=== PATIENT | male | born 1975 | race Caucasian/White ===

== ENCOUNTER 2017-08-23 21:06 | Emergency (ER) | payer MEDICAID ==
--- NOTE | 2017-08-23 21:05 | EDPHY ---
H & P Constitutional: Initial Vital Signs Temperature (C) 36.9 C 08/23/17 21:10 Heart Rate 88 08/23/17 21:10 Respiratory Rate 18 08/23/17 21:10 Blood Pressure 143/88 H 08/23/17 21:10 O2 Sat (%) 96 08/23/17 21:10 O2 Delivery Mode Room Air Allergies/Adverse Reactions: No Known Allergies Allergy (Unverified 08/23/17 21:15) Home Medications: Medication Instructions Recorded NK [No Known Home Meds] 08/23/17 Medical Decision Making ED Course/Re-evaluation: CHIEF COMPLAINT: HISTORY OF PRESENT ILLNESS: The patient is a homeless 42 y/o male arriving via EMS complaining of a two day old bee sting that caused vomiting. He reports that two days ago the bee stung his arm and then he had to dry heave. He has no other associated symptoms. He denies bee allergy. REVIEW OF SYSTEMS: A 10 point review of systems was performed and is negative with the exception of the elements mentioned in the history of present illness. PHYSICAL EXAM: HR, BP, O2 Sat, RR. Temp noted General Appearance: Alert, well hydrated, appropriate, and non-toxic appearing. Head: Atraumatic without scalp tenderness or obvious injury Eyes: Pupils equal, round, reactive to light and accommodation, EOMI, no trauma , no injection. Ears: Clear bilaterally, no perforation, normal landmarks Nose: Atraumatic, no rhinorrhea, clear. Throat: There is no erythema or exudates, no lesions, normal tonsils, mucus membranes moist. Neck: Supple, nontender, no lymphadenopathy. Respiratory: No retractions, no distress, no wheezes, and no accessory muscle use. Lungs are clear to auscultation bilaterally. Cardiovascular: Regular rate and rhythm, no murmurs, rubs, or gallops. Good capillary refill all extremities. Gastrointestinal: Abdomen is soft, nontender, non-distended, no masses, no rebound, no guarding, no peritoneal signs. Musculoskeletal: Normal active ROM of all extremities, atraumatic. Neurological: Alert, appropriate, and interactive. The patient has normal DTRs and non-focal cranial nerves, motor, sensory, and cerebellar exam. Skin: No rashes, good turgor, no nodules on palpation. Past medical history: Denies Past surgical history: Denies Family history: Non-contributory Social history: Homeless, smoker, DIAGNOSTICS/PROCEDURES/CRITICAL CARE TIME: DIFFERENTIAL DIAGNOSIS: The differential diagnosis included but was not limited to angioedema, anaphylaxis, anaphylactoid reaction, urticarial reaction, and other infectious causes for skin rash. MEDICAL DECISION MAKING: The patient is a homeless 42 y/o male arriving via EMS in bad weather complaining of a two day old bee sting that caused nausea and vomiting. On exam I cannot locate any bee sting and the patient seems to be in good health. I believe he is likely looking for a place to stay tonight. Benadryl and Zofran ordered. - Data Points Medications Given: Discontinued Medications Diphenhydramine HCl (Benadryl) 25 mg PO EDNOW ONE Stop: 08/23/17 21:13 Last Admin: 08/23/17 21:18 Dose: 25 mg Ondansetron HCl (Zofran Odt) 4 mg PO EDNOW ONE Stop: 08/23/17 21:14 Last Admin: 08/23/17 21:18 Dose: 4 mg Departure - Departure Disposition: Home, Routine, Self-Care Clinical Impression: Malingering Bee sting Qualifiers: Encounter type: initial encounter Injury intent: accidental or unintentional Qualified Code(s): T63.441A - Toxic effect of venom of bees, accidental ( unintentional), initial encounter Condition: Good Instructions: Insect Bite or Sting (ED) Additional Instructions: 1. Follow up with your primary care provider for unimproved symptoms. 2. Return to the ED for difficulty breathing or other dramatic worsening of condition. Referrals: [facility],. [Clinic] - As per Instructions Report Scribed for: Jose Antonio Ryan Report Scribed by: Radha Lemons Date of Report: 08/23/17 Time of Report: 21:14
[2017-08-23] MEDS ORDERED: diphenhydrAMINE 25 MG CAP PO ONE (21:12)
[2017-08-23] MEDS ORDERED: ONDANSETRON DISINTEGRATING 4 MG TAB PO ONE (21:13)
[2017-08-23 21:15] VITALS: BP 143/88; PULSE 88; RESP 18; TEMP 98.4; O2SAT 96
== END 2017-08-23 21:29 | disposition home or self-care (01) ==
DX: T63.441A Toxic effect of venom of bees, accidental (unintentional), initial encounter (principal); F17.200 Nicotine dependence, unspecified, uncomplicated; Z76.5 Malingerer [conscious simulation]

== ENCOUNTER 2017-11-05 09:52 | Inpatient (IN) | payer MEDICAID ==
[2017-11-05] MEDS ORDERED: ONDANSETRON 4 MG/2 ML VIAL ONE (10:01)
[2017-11-05] MEDS ORDERED: NS 1,000 ML IV ONE ×2 (10:08→11:10)
[2017-11-05] MEDS ORDERED: ONDANSETRON 4 MG/2 ML VIAL IVP ONE (10:09)
[2017-11-05 10:48] LABS: % IMMATURE GRANULYOCYTES 0.5 % (0.0-1.1); ABSOLUTE IMMATURE GRANULOCYTES 0.11 10^3/uL (0.00-0.10); ADD DIFF? NO; ADD MORPH? NO; ADD SCAN? NO; ATYPICAL LYMPHOCYTE FLAG 0 (0-99); FRAGMENT RBC FLAG 0 (0-99); HEMATOCRIT 47.5 % (40.0-51.0); HEMOGLOBIN 17.1 g/dL (13.7-17.5); LEFT SHIFT FLG 10 (0-99); LIPEMIA HEMOLYSIS FLAG 90 (0-99); MEAN CELL HEMOGLOBIN 31.6 pg (27.9-34.1); MEAN CELL VOLUME 87.8 fL (81.5-99.8); MEAN PLATELET VOLUME 9.5 fL (8.7-11.7); PLATELET CLUMPS FLAG 0 (0-99); PLATELET COUNT 258 10^3/uL (150-400); RED BLOOD CELL COUNT 5.41 10^6/uL (4.40-6.38); RED CELL DISTRIBUTION WIDTH 13.6 % (11.5-15.2)
[2017-11-05 11:08] LABS: ANION GAP 32 mEq/L (8-16); CALCIUM 10.5 mg/dL (8.5-10.4); CARBON DIOXIDE 15 mEq/l (22-31); CHLORIDE 95 mEq/L (97-110); CREATININE 1.7 mg/dL (0.7-1.3); ETHANOL SERUM 12 mg/dL (0-10); GLOMERULAR FILTRATION RATE 45; GLUCOSE 139 mg/dL (70-100); POTASSIUM 5.1 mEq/L (3.5-5.2); SODIUM 142 mEq/L (134-144)
[2017-11-05] MEDS ORDERED: LORazepam 2 MG/ML INJ IVP ONE (11:10)
--- NOTE | 2017-11-05 11:12 | EDPHY ---
H & P Time Seen by Provider: 11/05/17 10:15 HPI/ROS: CHIEF COMPLAINT: Vomiting HISTORY OF PRESENT ILLNESS: 42-year-old male presents to the emergency department with multiple episodes of vomiting since this morning. The patient admits to drinking 2 beers yesterday. He has some mild diffuse abdominal pain. He has no diarrhea. No known ill contacts. Patient states "I feel awful ". He denies any other substance abuse. Patient states that since he has been out of work he has been drinking heavily. He has never had an alcohol withdrawal related seizure. No fevers or chills. No URI symptoms. No cough. REVIEW OF SYSTEMS: Constitutional: No fever, no chills. Eyes: No double or blurry vision. ENT: No sore throat. Respiratory: No cough, no shortness of breath. Cardiac: No chest pain. Gastrointestinal: Abdominal pain, vomiting. No diarrhea. Genitourinary: No dysuria. Musculoskeletal: No neck or back pain. Skin: No rashes. Neurological: No headache. Past Medical/Surgical History: Negative Social History: homeless Smoking Status: Current every day smoker Physical Exam: General Appearance: Alert, moderate distress. Extremely anxious. Eyes: Pupils equal and round. Extraocular motions are all intact. ENT: Mouth: Mucous membranes very dry. Respiratory: No wheezing, rhonchi, or rales, lungs are clear to auscultation. Cardiovascular: Regular rate and rhythm. Gastrointestinal: Abdomen is soft. He has tenderness with palpation in the right lower quadrant. There is no masses, rebound or guarding noted. No CVA tenderness bilaterally. Neurological: Alert and oriented x 3, cranial nerves II through XII grossly intact Skin: Warm and dry, no rashes. Musculoskeletal: Nontender to palpate along the cervical, thoracic or lumbar spine. Neck is supple. Extremities: Full range of motion and no peripheral edema. Psychiatric: Patient is oriented X 3, there is no agitation. Constitutional: Initial Vital Signs Temperature (C) 36.6 C 11/05/17 10:05 Heart Rate 125 H 11/05/17 10:05 Respiratory Rate 18 11/05/17 10:05 Blood Pressure 107/94 H 11/05/17 10:05 O2 Sat (%) 97 11/05/17 10:05 O2 Delivery Mode Room Air Allergies/Adverse Reactions: No Known Allergies Allergy (Unverified 08/23/17 21:15) Home Medications: Medication Instructions Recorded NK [No Known Home Meds] 08/23/17 Medical Decision Making - Diagnostics Imaging Results: Imaging Impressions Abdomen/Pelvis CT 11/05/17 11:21 Impression: 1. Mild cecal wall thickening, which could be related to underdistention or mild colitis. 2. Fatty liver. 3. Mild gallbladder distention with no gallbladder wall thickening or appreciable biliary dilatation. 4. Additional findings as above. Findings discussed with Na Powell PA-C, 11/05/2017 at 12:02. Attention: This CT examination is specifically designed to evaluate patients who are clinically suspected of having acute obstructive uropathy. This examination does not use radiographic contrast, and as such, provides only a limited evaluation of the abdomen, pelvis and retroperitoneum. If there is further clinical suspicion for pathological conditions other than obstructive uropathy, a complete CT evaluation of the abdomen and pelvis utilizing intravenous and oral contrast should be considered. Imaging: Discussed imaging studies w/ call center dispatcher Radiologist ED Course/Re-evaluation: 42-year-old male presents to the emergency department with fatigue and multiple episodes of vomiting. Laboratory studies reveal elevated white blood cell count of nearly 24,000. I was concerned about possible acute appendicitis given his abdominal pain and vomiting. Patient however has a creatinine of 1.7. He was not given IV contrast. CT noncontrast of the abdomen and pelvis reveal a normal appendix. No obstruction. The patient will be admitted with abdominal pain, dehydration, vomiting, and acute kidney injury. Case was discussed with Dr. Chayo Gilmore, secondary supervising physician, who did not directly evaluate the patient but agrees with treatment and plan. IV was established the patient received 2 L of IV normal saline as well as IV Ativan and Zofran. Differential Diagnosis: Including but not limited to dehydration, acute appendicitis, kidney stone, urinary tract infection, pyelonephritis, electrolyte abnormality - Data Points Laboratory Results: Laboratory Results 11/05/17 10:00 11/05/17 10:00 11/05/17 11/05/17 10:00 10:00 WBC 23.62 10^3/uL H 10^3/uL (3.80-9.50) RBC 5.41 10^6/uL 10^6/uL (4.40-6.38) Hgb 17.1 g/dL g/dL (13.7-17.5) Hct 47.5 % % (40.0-51.0) MCV 87.8 fL fL (81.5-99.8) MCH 31.6 pg pg (27.9-34.1) MCHC 36.0 g/dL g/dL (32.4-36.7) RDW 13.6 % % (11.5-15.2) Plt Count 258 10^3/uL 10^3/uL (150-400) MPV 9.5 fL fL (8.7-11.7) Neut % (Auto) 85.7 % H % (39.3-74.2) Lymph % (Auto) 8.9 % L % (15.0-45.0) [place] % (Auto) 4.4 % L % (4.5-13.0) Eos % (Auto) 0.0 % L % (0.6-7.6) Baso % (Auto) 0.5 % % (0.3-1.7) Nucleat RBC Rel Count 0.0 % % (0.0-0.2) Absolute Neuts (auto) 20.26 10^3/uL H 10^3/uL (1.70-6.50) Absolute Lymphs (auto) 2.11 10^3/uL 10^3/uL (1.00-3.00) Absolute Monos (auto) 1.03 10^3/uL H 10^3/uL (0.30-0.80) Absolute Eos (auto) 0.00 10^3/uL L 10^3/uL (0.03-0.40) Absolute Basos (auto) 0.11 10^3/uL H 10^3/uL (0.02-0.10) Absolute Nucleated RBC 0.00 10^3/uL 10^3/uL (0-0.01) Immature Gran % 0.5 % % (0.0-1.1) Immature Gran # 0.11 10^3/uL H 10^3/uL (0.00-0.10) Sodium 142 mEq/L mEq/L (134-144) Potassium 5.1 mEq/L mEq/L (3.5-5.2) Chloride 95 mEq/L L mEq/L (97-110) Carbon Dioxide 15 mEq/l L mEq/l (22-31) Anion Gap 32 mEq/L H mEq/L (8-16) BUN 16 mg/dL mg/dL (7-23) Creatinine 1.7 mg/dL H mg/dL (0.7-1.3) Estimated GFR 45 Glucose 139 mg/dL H mg/dL (70-100) Calcium 10.5 mg/dL H mg/dL (8.5-10.4) Ethyl Alcohol 12 mg/dL H mg/dL (0-10) Medications Given: Acetaminophen (Tylenol) 650 mg PO Q4HRS PRN PRN Reason: Pain, Mild/Fever, Can Take PO Stop: 05/04/18 12:17 Last Admin: 11/05/17 15:34 Dose: 650 mg Chlordiazepoxide HCl (Librium) 25 mg PO TID CRESCENCIO Stop: 05/04/18 15:59 Last Admin: 11/05/17 16:38 Dose: 25 mg Sodium Chloride (Ns) 1,000 mls @ 100 mls/hr IV CONT CRESCENCIO Stop: 05/04/18 12:29 Last Admin: 11/05/17 13:42 Dose: 1,000 mls Thiamine HCl 100 mg/ Sodium (Chloride) 101 mls @ 202 mls/hr IV DAILY CRESCENCIO Stop: 05/04/18 12:29 Last Admin: 11/05/17 13:42 Dose: 101 mls Discontinued Medications Sodium Chloride (Ns) 1,000 mls @ 0 mls/hr IV ONCE ONE PRN Reason: Wide Open Stop: 11/05/17 10:09 Last Admin: 11/05/17 10:09 Dose: 1,000 mls Sodium Chloride (Ns) 1,000 mls @ 0 mls/hr IV ONCE ONE PRN Reason: Wide Open Stop: 11/05/17 11:11 Last Admin: 11/05/17 11:19 Dose: 1,000 mls Lorazepam (Ativan Injection) 1 mg IVP EDNOW ONE Stop: 11/05/17 11:11 Last Admin: 11/05/17 11:20 Dose: 1 mg Ondansetron HCl (Zofran) 4 mg IVP EDNOW ONE Stop: 11/05/17 10:10 Last Admin: 11/05/17 10:09 Dose: 4 mg Departure - Departure Disposition: [facility] Clinical Impression: Dehydration, Acute kidney injury Abdominal pain Qualifiers: Abdominal location: lower abdomen, unspecified Qualified Code(s): R10.30 - Lower abdominal pain, unspecified Vomiting Qualifiers: Vomiting type: unspecified Vomiting Intractability: non-intractable Nausea presence: with nausea Qualified Code(s): R11.2 - Nausea with vomiting, unspecified Condition: Fair
[2017-11-05] MEDS ORDERED: ONDANSETRON 4 MG/2 ML VIAL IVP PRN (12:18)
[2017-11-05] MEDS: THIAMINE HCL 100 MG in NS 100 ML IV SCH (13:42)
[2017-11-05] MEDS: NS 1,000 ML IV SCH (13:42)
[2017-11-05] MEDS: ACETAMINOPHEN 325 MG TAB PO PRN (15:34)
--- NOTE | 2017-11-05 16:00 | GHP ---
[f rep st] HISTORY AND PHYSICAL DATE OF ADMISSION: 11/05/2017 CHIEF COMPLAINT: Vomiting. HISTORY OF PRESENT ILLNESS: A 42-year-old male with no significant past medical history, who present s with sudden onset of nausea and vomiting the evening prior to presentation. Patient reports overal l not feeling well with some subjective fevers and chills, nonbloody emesis with mild associated abdo farrah discomfort. Patient denies any diarrhea, denies any melena or blood in his stools. Denies any dysuria, hematuria, rashes, known sick contacts. The patient reports some shortness of breath when he was vomiting and feeling ill; otherwise, no reported cough. Denies any chest pain, headache or vi akhil changes. The patient has some low back pain reported with his retching. Overall, feels very fa tigued. PAST MEDICAL HISTORY: Alcohol use/abuse. SOCIAL HISTORY: The patient smokes a pack a day. Reports inconsistent alcohol use, says he keeps a job. Denies illicit drugs. Reports smoking marijuana daily. FAMILY HISTORY: Positive for colon cancer in his father. REVIEW OF SYSTEMS: A 10-point review of systems is negative with the exception of that reported in t he HPI. PHYSICAL EXAMINATION: VITAL SIGNS: Blood pressure is 150/113, heart rate 125, respiratory rate 18, saturating 98% on room air, 36.4. GENERAL: This is a disheveled male sitting up in bed. HEENT: No table for dry mucous membranes. Eye exam is negative for any icterus. CARDIAC: Patient is tachycar dic. PULMONARY: Clear to auscultation bilaterally. GASTROINTESTINAL: Positive bowel sounds. ABDO MEN: Soft. MUSCULOSKELETAL: Negative for any lower extremity edema. SKIN: Negative for any rashe s. NEUROLOGIC: The patient is tremulous with tongue fasciculations on my examination. Otherwise, a lert and oriented. PSYCHIATRIC: He appears anxious on interview and examination. DATA: CT of the abdomen and pelvis, which I personally reviewed and interpreted, shows mild cecal wa ll thickening, potentially consistent with mild colitis. Fatty liver. No gallbladder wall thickenin g. Laboratory: White count 23,000, hematocrit 47.5, platelets of 258. Sodium 142, creatinine 1.7, anio n gap 32, bicarb 15. ASSESSMENT AND PLAN: This is a 42-year-old male, presenting with nausea and vomiting. 1. Systemic inflammatory response syndrome: The patient has leukocytosis and tachycardia. No clear source is identified at this time. May be related to alcohol withdrawal alone, gastrointestinal or pulmonary source. Will send gastrointestinal pathogen panel, respiratory pathogen panel. 2. Acute alcohol withdrawal. Patient is tremulous, tachycardic on examination with a low blood alco hol at presentation. Will initiate the Clinical [facility] Withdrawal Assessment protocol. 3. Sinus tachycardia. Suspect likely multifactorial: Hypovolemia, potentially acute infection, alc ohol withdrawal. We will fluid resuscitate, treat alcohol withdrawal, work up potential occult infec tion, and follow. 4. Acute leukocytosis. The source is unclear to me currently. The patient's only significant prese nting complaint was nausea. Will send gastrointestinal and respiratory pathogen panels, order a ches t x-ray to rule out intrapulmonic source. Can recheck and follow. Will not begin empiric antibiotic s at this time. I have additionally ordered urinalysis and culture. Unfortunately, the patient is n ot an excellent historian. 5. Anion gap metabolic acidosis. Suspect secondary to starvation ketosis, lower suspicion for lacti c acidosis but will add a lactate to the presenting labs. Will follow patient's acid-base status aft er aggressive fluid resuscitation. 6. Acute kidney injury. Suspect hypovolemic in nature from nausea and vomiting, and poor p.o. intak e at presentation. Again, will recheck after fluid resuscitation. 7. Prophylaxis with heparin secondary to acute kidney injury. DIET: Regular, if he can tolerate it. DISPOSITION: Expecting greater than 2 midnights as patient is presenting acutely ill from an unident ified source and will need treatment for alcohol withdrawal. I discussed the case with the emergency room physician. Patient will be triaged to the medical-surgical floor for care. /[id number]/MODL
[2017-11-05 16:10] LABS: HEMATOCRIT 37.8 % (40.0-51.0); HEMOGLOBIN 13.7 g/dL (13.7-17.5); MEAN CELL HEMOGLOBIN 31.7 pg (27.9-34.1); MEAN CELL HEMOGLOBIN CONCENTR. 36.2 g/dL (32.4-36.7); MEAN CELL VOLUME 87.5 fL (81.5-99.8); RED BLOOD CELL COUNT 4.32 10^6/uL (4.40-6.38); RED CELL DISTRIBUTION WIDTH 13.5 % (11.5-15.2)
[2017-11-05 16:20] LABS: CALCIUM 8.7 mg/dL (8.5-10.4); CARBON DIOXIDE 22 mEq/l (22-31); CHLORIDE 101 mEq/L (97-110); CREATININE 1.2 mg/dL (0.7-1.3); GLOMERULAR FILTRATION RATE > 60; GLUCOSE 139 mg/dL (70-100); SODIUM 137 mEq/L (134-144)
[2017-11-05] MEDS: chlordiazePOXIDE 25 MG CAP PO SCH ×2 (16:38→20:46)
[2017-11-05 16:41] LABS: ANION GAP 14 mEq/L (8-16); POTASSIUM 4.9 mEq/L (3.5-5.2)
[2017-11-05 17:18] LABS: COLOR YELLOW; LEUKOCYTE ESTERASE,URINE NEGATIVE (NEGATIVE); NITRITE,URINE NEGATIVE (NEGATIVE)
[2017-11-05 17:43] LABS: PHENCYCLIDINE URINE BCH < 6 ng/ml (NEGATIVE); PHENCYCLIDINE URINE BCH NEGATIVE (NEGATIVE)
--- NOTE | 2017-11-05 17:49 | PDMN ---
Medical Necessity Medical necessity: C/M review: Patient meets INPT criteria under [facility] [id number] Substance related disorders; Acute alcohol withdrawal, systemic inflammatory response syndrome, acute leujkocytosis, WBC 23.62 sinus tachycardia, heart rate 125-107, anion gap metabolic acidosis, anion gap 32, bicarb 15, nausea, vomiting , requiring ongoing IV fluids, IV Thiamine daily, CIWA protocol, comorbid alcohol use / abuse, tobacco use, marijuana smoking daily. MD anticipates > 2 MN LOS for ongoing med nec for eval and TX of above.
[2017-11-05 17:56] LABS: TETRAHYDROCANNABINOL URINE 334 ng/mL (NEGATIVE)
--- NOTE | 2017-11-05 18:03 | ASMTCMCOM ---
CM Note CM Note Notes: Patient presented to the ED via EMS for malaise, vomiting. Patient admitted for Acute leukocytosis, Systemic Inflammatory Response Syndrome, CRISTIAN, ETOH Withdrawal. Patient is homeless and has been in the [facility] for about 3 months. CM may need to confirm patient has homeless resource information including [employer], etc. Exact DC needs unknown at this time. CM to follow. Date Signed: 11/05/2017 06:03 PM Electronically Signed By:Nadege Dave RN
[2017-11-05] MEDS: LORazepam 2 MG/ML INJ IVP PRN (18:48)
[2017-11-05] MEDS: HEPARIN 5,000 UNIT/0.5 ML SYR SC SCH (20:46)
[2017-11-05] MEDS: ONDANSETRON DISINTEGRATING 4 MG TAB PO PRN (20:50)
[2017-11-06] MEDS: NS 1,000 ML IV SCH (02:12)
[2017-11-06] MEDS: HEPARIN 5,000 UNIT/0.5 ML SYR SC SCH ×3 (04:42→20:43)
[2017-11-06 05:49] LABS: % IMMATURE GRANULYOCYTES 0.2 % (0.0-1.1); ABSOLUTE IMMATURE GRANULOCYTES 0.02 10^3/uL (0.00-0.10); ADD DIFF? NO; ADD MORPH? NO; ADD SCAN? NO; ATYPICAL LYMPHOCYTE FLAG 0 (0-99); FRAGMENT RBC FLAG 0 (0-99); HEMATOCRIT 39.1 % (40.0-51.0); HEMOGLOBIN 13.9 g/dL (13.7-17.5); LEFT SHIFT FLG 0 (0-99); LIPEMIA HEMOLYSIS FLAG 90 (0-99); MEAN CELL HEMOGLOBIN 32.1 pg (27.9-34.1); MEAN CELL HEMOGLOBIN CONCENTR. 35.5 g/dL (32.4-36.7); MEAN CELL VOLUME 90.3 fL (81.5-99.8); MEAN PLATELET VOLUME 9.7 fL (8.7-11.7); PLATELET CLUMPS FLAG 10 (0-99); PLATELET COUNT 165 10^3/uL (150-400); RED BLOOD CELL COUNT 4.33 10^6/uL (4.40-6.38); RED CELL DISTRIBUTION WIDTH 13.6 % (11.5-15.2)
[2017-11-06 06:20] LABS: ANION GAP 10 mEq/L (8-16); CALCIUM 8.1 mg/dL (8.5-10.4); CARBON DIOXIDE 22 mEq/l (22-31); CHLORIDE 107 mEq/L (97-110); GLOMERULAR FILTRATION RATE > 60; GLUCOSE 76 mg/dL (70-100); SODIUM 139 mEq/L (134-144)
[2017-11-06] MEDS ORDERED: ENOXAPARIN 40 MG/0.4 ML SYR SC SCH (09:00)
[2017-11-06] MEDS: THIAMINE HCL 100 MG in NS 100 ML IV SCH (09:31)
[2017-11-06] MEDS: chlordiazePOXIDE 25 MG CAP PO SCH ×3 (09:31→20:43)
--- NOTE | 2017-11-06 09:40 | HOSPPROG ---
Hospitalist Progress Note Assessment/Plan: #Etoh withdrawal: Librium, PRN Ativan. CM to evaluate #CRISTIAN: resolved with IVFs #Etoh abuse: counseled on cessation #Leukocytosis: likely dehydration. Resolved #Anion gap acidosis: resolved #SIRS: resolved #Sinus tachycardia: resolved with IVF #Diet: regular #Disp: cont inpatient admission for benzos, neuro checks Subjective: feeling anxious. Nauseated Objective: Vital Signs Temp Pulse Resp BP Pulse Ox 36.5 C 87 16 123/75 H 93 11/06/17 07:21 11/06/17 07:21 11/06/17 07:21 11/06/17 07:21 11/06/17 07:21 Microbiology 11/06/17 07:45 Gastrointestinal Tract Panel (PCR) - Final Stool No Organism Detected 11/05/17 16:54 Respiratory Panel (PCR) - Final Nasal, Sinus - Swab No Organism Detected Laboratory Results 11/06/17 04:37 11/06/17 04:37 11/05/17 11/06/17 11/07/17 05:59 05:59 05:59 Intake Total 3007 Output Total 200 Balance 2807 - Physical Exam Constitutional: no apparent distress Eyes: PERRL Ears, Nose, Mouth, Throat: dry mucous membranes Cardiovascular: regular rate and rhythym, no murmur, rub, or gallop Respiratory: no respiratory distress, no rales or rhonchi Gastrointestinal: normoactive bowel sounds, soft, non-tender abdomen Genitourinary: no bladder fullness Skin: warm Musculoskeletal: full muscle strength Neurologic: AAOx3, CN II-XII Intact, other (hand tremors and tongue fasiculations) Psychiatric: interacting appropriately, anxious ICD10 Worksheet Patient Problems: Problems Problem Status Onset Abdominal pain Acute Acute kidney injury Acute Dehydration Acute Vomiting Acute
[2017-11-06] MEDS: LORazepam 2 MG/ML INJ IVP PRN ×2 (09:43→14:25)
[2017-11-06] MEDS: ONDANSETRON DISINTEGRATING 4 MG TAB PO PRN ×2 (09:44→14:24)
[2017-11-06 10:58] LABS: ALBUMIN 3.1 g/dL (3.5-5.0); BILIRUBIN,TOTAL 1.1 mg/dL (0.1-1.4); BILIRUBIN-CONJUGATED 0.4 mg/dL (0.0-0.5); BILIRUBIN-UNCONJUGATED 0.7 mg/dL (0.0-1.1); TOTAL PROTEIN 5.4 g/dL (6.3-8.2)
--- NOTE | 2017-11-06 13:00 | ASMTCMCOM ---
CM Note CM Note Notes: Spoke with pt re; etoh resources. Pt is from [place], is very close with his mother who still lives there but due to his drinking cannot stay with her and he doesn't want to put her in that position. He has been living in a tent [address] but states cannot stay there anymore. Pt was working at the [employer] in [employer] but got fired. Wants to work again and does seem capable. CM discussed with pt the fact that when he doesn't drink he does well, so has awareness of needing to stay sober and be around supportive people that don't drink. Etoh resources given. DC Plan: Bed at [facility], bus pass, and warm clothes Date Signed: 11/06/2017 01:00 PM Electronically Signed By:Barb Steele RN
[2017-11-06] MEDS ORDERED: FLU VACC QS 2017-18 (3YR+)/PF 0.5 ML SYR (FLUARIX QUAD) IM ONE (17:42)
[2017-11-06] MEDS ORDERED: PNEUMOCOCCAL 0.5ML VACCINE VIAL IM ONE (17:42)
[2017-11-06] MEDS: ACETAMINOPHEN 325 MG TAB PO PRN (20:49)
[2017-11-07] MEDS: HEPARIN 5,000 UNIT/0.5 ML SYR SC SCH ×3 (04:54→21:10)
[2017-11-07] MEDS: LORazepam 2 MG/ML INJ IVP PRN (05:01)
--- NOTE | 2017-11-07 08:32 | HOSPPROG ---
Hospitalist Progress Note Assessment/Plan: #Etoh withdrawal: Still requiring Ativan #CRISTIAN: resolved with IVFs #Etoh abuse: counseled on cessation #Leukocytosis: likely dehydration. Resolved #Anion gap acidosis: resolved #SIRS: resolved #Sinus tachycardia: resolved with IVF #Diet: regular #Disp: cont inpatient admission for benzos, neuro checks. DC to snf at DC, likely tomorrow Subjective: dizzy and diarrhea today. Objective: Vital Signs Temp Pulse Resp BP Pulse Ox 36.8 C 68 14 110/64 95 11/07/17 07:19 11/07/17 07:19 11/07/17 07:19 11/07/17 07:19 11/07/17 07:19 Microbiology 11/06/17 07:45 Gastrointestinal Tract Panel (PCR) - Final Stool No Organism Detected Laboratory Results 11/06/17 04:37 11/06/17 04:37 11/06/17 11/07/17 11/08/17 05:59 05:59 05:59 Intake Total 3007 1700 Output Total 200 450 Balance 2807 1250 - Physical Exam Constitutional: no apparent distress Eyes: PERRL Ears, Nose, Mouth, Throat: moist mucous membranes, hearing normal Cardiovascular: regular rate and rhythym Respiratory: no respiratory distress, no rales or rhonchi Gastrointestinal: normoactive bowel sounds, other (mild epigastric TTP) Genitourinary: no bladder fullness Skin: warm Musculoskeletal: full muscle strength Neurologic: AAOx3, CN II-XII Intact, other (hand tremors, mild tongue fasiculation) Psychiatric: interacting appropriately ICD10 Worksheet Patient Problems: Problems Problem Status Onset Abdominal pain Acute Acute kidney injury Acute Dehydration Acute Vomiting Acute
[2017-11-07] MEDS: THIAMINE HCL 100 MG in NS 100 ML IV SCH (08:53)
[2017-11-07] MEDS: chlordiazePOXIDE 25 MG CAP PO SCH ×3 (08:53→21:09)
[2017-11-07] MEDS: NS 1,000 ML IV SCH (15:17)
[2017-11-08] MEDS: NS 1,000 ML IV SCH (03:33)
[2017-11-08 05:40] LABS: MAGNESIUM 1.8 mg/dL (1.6-2.3)
[2017-11-08] MEDS: HEPARIN 5,000 UNIT/0.5 ML SYR SC SCH (05:45)
[2017-11-08 07:24] VITALS: BP 130/75; PULSE 62; RESP 14; TEMP 98.1; O2SAT 96
[2017-11-08] MEDS: THIAMINE HCL 100 MG in NS 100 ML IV SCH (08:52)
[2017-11-08] MEDS: chlordiazePOXIDE 25 MG CAP PO SCH (08:52)
--- NOTE | 2017-11-08 10:30 | GDS ---
[f rep st] DISCHARGE SUMMARY DISCHARGE DIAGNOSES: 1. Alcohol withdrawal. 2. Alcohol dependence. 3. Acute kidney injury. 4. Metabolic anion gap acidosis. 5. Tachycardia. 6. Systemic inflammatory response syndrome. HISTORY OF PRESENT ILLNESS: A 42-year-old male with no significant past medical history, except for alcohol dependence, presented with sudden onset of nausea/vomiting evening prior to presentation. Re ports overall not feeling well, with some subjective fevers, chills, nonbloody emesis, and mild abdom inal discomfort. No diarrhea, melena, or hematochezia. No dysuria. HOSPITAL COURSE BY PROBLEM: 1. SIRS: Had mild leukocytosis and tachycardia at admission. This was likely secondary to alcohol withdrawal and dehydration. He remained afebrile, without an infectious source. CT abdomen, x-ray w ere negative, as well as a UA. 2. Tachycardia: Secondary to dehydration and alcohol withdrawal, since resolved with fluids. 3. Acute alcohol withdrawal: No history of seizures. He was treated with Librium and p.r.n. Ativan , and this has since resolved. I had multiple conversations, as well as Case Management, on cessatio n and he was provided resources. 4. Homelessness: Again, Case Management assisted with alf placement tonight and he was provided other alf options. 5. Metabolic anion gap acidosis secondary to starvation and alcohol ketoacidosis: Resolved with IV fluids. 6. CRISTIAN: Creatinine was elevated to 1.7. Quickly resolved with fluids. DISPOSITION: Patient is stable for discharge. MEDICATIONS: No new medications. FOLLOWUP: Patient should enroll in an alcohol cessation program. PHYSICAL EXAMINATION: VITAL SIGNS: Temperature 36.7. Blood pressure 130/73. Heart rate is in the 60s. Respirations 14. 96% on room air. GENERAL: Well appearing, in no acute distress. HEENT: PE RRLA. EOMI. Oropharynx clear. CV: Regular rate and rhythm. No murmur, gallops, or rubs. LUNGS: Clear. ABDOMEN: Soft, nontender, nondistended. Positive bowel sounds. : No Palacio. MUSCULOSKE LETAL: 5/5 upper and lower extremity strength. NEURO: 2 through 12 intact. No hand tremor or tong ue fasciculations. PSYCH: Alert and oriented x3. /[id number]/MODL
--- NOTE | 2017-11-09 10:08 | ASDISCHSUM ---
Discharge Information Plan Status:Homeless/[facility] Medically Cleared to Leave: Discharge Date:11/08/2017 11:54 AM CM D/C Disposition:Streets (Homeless) ADT D/C Disposition:Home, Routine, Self-Care Projected Discharge Date:11/08/2017 11:54 AM Transportation at D/C:Bus Ticket Discharge Delay Reason: Follow-Up Date:11/08/2017 11:54 AM Discharge Slot: Final Diagnosis: Placement Information Patient Contact Information Contact Name:DEVONTE Relationship: Address: Home Phone: Work Phone: City: Alternate Phone: State/Zip Code: Email: Financial Information Financial Class: Primary Plan Desc:[facility] Primary Plan Number:[id number] Secondary Plan Desc: Secondary Plan Number: Assessment Information [facility] CM Progress Note CM Note CM Note Notes: Patient presented to the ED via EMS for malaise, vomiting. Patient admitted for Acute leukocytosis, Systemic Inflammatory Response Syndrome, CRISTIAN, ETOH Withdrawal. Patient is homeless and has been in the [facility] for about 3 months. CM may need to confirm patient has homeless resource information including [employer], etc. Exact DC needs unknown at this time. CM to follow. Date Signed: 11/05/2017 06:03 PM Electronically Signed By:Nadege Dave RN LACE LACE Acuity / Level of Care Answers: Was the patient admitted to hospital via the emergency department? Yes: Emergency dept visits in Answers: 2 last 6 months Score: 5 Date Signed: 11/05/2017 06:03 PM Electronically Signed By:Nadege Dave RN [facility] Progress Note CM Note CM Note Notes: Spoke with pt re; etoh resources. Pt is from [place], is very close with his mother who still lives there but due to his drinking cannot stay with her and he doesn't want to put her in that position. He has been living in a tent [address] but states cannot stay there anymore. Pt was working at the [employer] in [place] but got fired. Wants to work again and does seem capable. CM discussed with pt the fact that when he doesn't drink he does well, so has awareness of needing to stay sober and be around supportive people that don't drink. Etoh resources given. DC Plan: Bed at [facility], bus pass, and warm clothes Date Signed: 11/06/2017 01:00 PM Electronically Signed By:Barb Setele RN Case Management Discharge Plan Note Case Management Discharge Discharge Order Complete? Answers: Yes Patient to Obtain Answers: Independently Medications Transportation Arranged Answers: Bus Tokens Discharge Comments Notes: Patient discharged indepedendently. [facility] bed reserved and bus pass given. Also given warm clothes. Patient has other resources to follow up with [facility], [facility], etc. Date Signed: 11/08/2017 11:28 AM Electronically Signed By:Cuca Ramos RN Intervention Information
== END 2017-11-08 11:54 | disposition home or self-care (01) | DRG 641 ==
LOC: EDUNIT# → F3E 13:09
PROVIDERS: ADMIT Hospitalist; ATTEND Internal Medicine
PROC: HZ2ZZZZ Detoxification Services for Substance Abuse Treatment (ICD-10-PCS; principal; 2017-11-05)
DX: E86.0 Dehydration (principal); E87.2 Acidosis; R11.2 Nausea with vomiting, unspecified; N17.9 Acute kidney failure, unspecified; R65.10 Systemic inflammatory response syndrome (SIRS) of non-infectious origin without acute organ dysfunction; F10.230 Alcohol dependence with withdrawal, uncomplicated; F17.210 Nicotine dependence, cigarettes, uncomplicated; Z23 Encounter for immunization; Z59.0 Homelessness
CPT/HCPCS: 80307; 96374; G0008; G0009; G0480; J1650; J2060; J2405; J3411